=== PATIENT | male | born 1955 | race Caucasian/White ===

== ENCOUNTER 2017-07-18 07:57 | Day surgery (SDC) | payer BC ==
[~2017-07-18 07:57] MED LIST: Albuterol 0.083% 2.5 MG/3 ML Neb Soln NEB SCH; Lactated Ringers 1,000 ML IV SCH; Lidocaine 1%/Sod Bicarbonate in NS 8.4% 1 ML Syringe IDERM PRN; Sodium Chloride 0.9% 10 ML Syringe FLUSH PRN
[2017-07-18] MEDS ORDERED: Lidocaine 1% with EPINEPHrine 1:100,000 20 ML MDV ONE (08:15)
[2017-07-18] MEDS ORDERED: Bupivacaine 0.5%/EPINEPHrine 1:200,000 50 ML MDV ONE (08:15)
[2017-07-18] MEDS ORDERED: Lidocaine 1% 4 ML ONE (08:48)
[2017-07-18] MEDS ORDERED: Ondansetron 4 MG/2 ML SDV ONE (08:48)
[2017-07-18] MEDS ORDERED: Propofol 200 MG/20 ML SDV ONE (08:48)
[2017-07-18] MEDS ORDERED: ceFAZolin 1 GM Vial ONE (08:49)
[2017-07-18] MEDS ORDERED: Midazolam 1 MG/ML 2 ML SDV ONE (08:49)
[2017-07-18] MEDS ORDERED: fentaNYL 250 MCG/5 ML SDV ONE (08:49)
[2017-07-18] MEDS ORDERED: Metoprolol Succinate 25 MG Tab.ER PO ONE (09:01)
--- NOTE | 2017-07-18 09:09 | PCM.PREANE ---
Preanesthetic Assessment - Anesthesia/Transfusion/Family Hx Anesthesia History: Prior Anesthesia Without Reaction Family History of Anesthesia Reaction: No Transfusion History: No Prior Transfusion(s) - Review of Systems General: No Symptoms Pulmonary: No Symptoms Cardiovascular: No Symptoms Gastrointestinal: No Symptoms Neurological: No Symptoms Other: Reports: Easy Bruising, Depression - Physical Assessment NPO Status Date: 07/18/17 NPO Status Time: 20:00 O2 Sat by Pulse Oximetry: 100 Respiratory Rate: 18 Vital Signs: Last Vital Signs Temp 98.1 F 07/18/17 08:00 Pulse 58 L 07/18/17 08:00 Resp 18 07/18/17 08:00 BP 119/79 07/18/17 08:00 Pulse Ox 100 07/18/17 08:00 Height: 5 ft 6 in Weight: 80.286 kg ASA Class: 2 Mental Status: Alert & Oriented x3 Airway Class: Mallampati = 1 Dentition: Reports: Normal Dentition Thyro-Mental Finger Breadths: 3 Mouth Opening Finger Breadths: 3 ROM/Head Extension: Full Lungs: Clear to Auscultation, Normal Respiratory Effort Cardiovascular: Regular Rate, Regular Rhythm - Allergies Allergies/Adverse Reactions: Allergies Allergy/AdvReac Type Severity Reaction Status Date / Time No Known Allergies Allergy Verified 07/18/17 08:48 - Blood Blood Available: No - Anesthesia Plan Beta Calos: Metoprolol Med Last Dose Date: 07/18/17 Med Last Dose Time: 09:05 - Acknowledgements Anesthesia Type Planned: General Anesthesia Pt an Appropriate Candidate for the Planned Anesthesia: Yes Alternatives and Risks of Anesthesia Discussed w Pt/Guardian: Yes Pt/Guardian Understands and Agrees with Anesthesia Plan: Yes PreAnesthesia Questionnaire HEENT History: Reports: Impaired Vision Cardiovascular History: Reports: High Cholesterol, Hypertension, Pacemaker, Other (See Below) Other Cardiovascular History: sick sinus syndrome prior to pacemaker, palpitations, angiogram Respiratory History: Reports: None, SOB Gastrointestinal History: Reports: None, GERD Genitourinary History: Reports: None 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 Musculoskeletal History: Reports: Gout Neurological History: Reports: MS (possibly) Psychiatric History: Reports: None Endocrine/Metabolic History: Reports: None Hematologic History: Reports: None Immunologic History: Reports: None Oncologic (Cancer) History: Reports: None Dermatologic History: Reports: None - Past Surgical History Head Surgeries/Procedures: Reports: None HEENT Surgical History: Reports: Cataract Surgery Cardiovascular Surgical History: Reports: None, Pacer Respiratory Surgical History: Reports: None GI Surgical History: Reports: Appendectomy, Hernia, Inguinal Female Surgical History: Reports: None Male Surgical History: Reports: None Endocrine Surgical History: Reports: None Neurological Surgical History: Reports: None Musculoskeletal Surgical History: Reports: None, Nerve Relocation Oncologic Surgical History: Reports: None Dermatological Surgical History: Reports: None - SUBSTANCE USE Smoking Status *Q: Former Smoker Tobacco Use Within Last Twelve Months: Smokeless Tobacco, Snuff/Dip Second Hand Smoke Exposure: No Days Per Week of Alcohol Use: 1 Number of Drinks Per Day: 2 Total Drinks Per Week: 2 Recreational Drug Use History: No - HOME MEDS Home Medications: Home Meds Allopurinol [Zyloprim] 300 mg PO DAILY 07/17/17 [History] Aspirin [Ecotrin] 81 mg PO DAILY 07/17/17 [History] Losartan/Hydrochlorothiazide [Losartan-HCTZ 50-12.5 MG] 1 tab PO DAILY 07/17/17 [History] Metoprolol Succinate 25 mg PO QPM 07/17/17 [History] Pantoprazole Sodium 40 mg PO DAILY 07/17/17 [History] Sertraline HCl 50 mg PO DAILY 07/17/17 [History] amLODIPine Besylate [Amlodipine Besylate] 10 mg PO DAILY 07/17/17 [History] atorvaSTATin Calcium [Atorvastatin Calcium] 40 mg PO BEDTIME 07/17/17 [History] - CURRENT (IN HOUSE) MEDS Current Meds: Current Medications Albuterol (Proventil Neb Soln) 2.5 mg NEB ONETIME SUSAN Stop: 07/18/17 16:00 Lactated Ringer's (Ringers, Lactated) 1,000 mls @ 125 mls/hr IV ASDIRECTED SUSAN Stop: 07/18/17 23:00 Last Admin: 07/18/17 08:20 Dose: 125 mls/hr Lidocaine/Sodium Bicarbonate (Buffered Lidocaine 1% In Ns 8.4%) 0.25 ml IDERM ONETIME PRN PRN Reason: Prior to IV Start Stop: 07/18/17 18:00 Last Admin: 07/18/17 08:19 Dose: 0.25 ml Sodium Chloride (Saline Flush) 10 ml FLUSH ASDIRECTED PRN PRN Reason: Keep Vein Open Stop: 07/18/17 18:00 Discontinued Medications Bupivacaine HCl/Epinephrine Bitart (Marcaine 0.5%/Epinephrine 1:200,000) Confirm Administered Dose 50 ml .ROUTE .STK-MED ONE Stop: 07/18/17 08:16 Cefazolin Sodium (Ancef) Confirm Administered Dose 2 gm .ROUTE .STK-MED ONE Stop: 07/18/17 08:50 Fentanyl (Sublimaze) Confirm Administered Dose 250 mcg .ROUTE .STK-MED ONE Stop: 07/18/17 08:50 Lidocaine HCl (Xylocaine-Mpf 1%) Confirm Administered Dose 4 mls @ as directed .ROUTE .STK-MED ONE Stop: 07/18/17 08:49 Lidocaine/Epinephrine (Xylocaine 1% With Epinephrine 1:100,000) Confirm Administered Dose 20 ml .ROUTE .STK-MED ONE Stop: 07/18/17 08:16 Metoprolol Succinate (Toprol Xl) 25 mg PO ONETIME ONE Stop: 07/18/17 09:02 Midazolam HCl (Versed 1 Mg/Ml) Confirm Administered Dose 2 mg .ROUTE .STK-MED ONE Stop: 07/18/17 08:50 Ondansetron HCl (Zofran) Confirm Administered Dose 4 mg .ROUTE .STK-MED ONE Stop: 07/18/17 08:49 Propofol (Diprivan 20 Ml) Confirm Administered Dose 200 mg .ROUTE .STK-MED ONE Stop: 07/18/17 08:49
[2017-07-18] MEDS ORDERED: Ondansetron 4 MG/2 ML SDV IVPUSH PRN (09:56)
[2017-07-18] MEDS ORDERED: Meperidine PF 50 MG/ML Syringe IVPUSH PRN (09:56)
[2017-07-18] MEDS ORDERED: fentaNYL 100 MCG/2 ML SDV IVPUSH PRN (09:56)
[2017-07-18] MEDS ORDERED: HYDROmorphone 0.5 MG/0.5 ML Syringe IVPUSH PRN (09:56)
[2017-07-18] MEDS ORDERED: Lactated Ringers 1,000 ML ONE (10:42)
--- NOTE | 2017-07-18 10:52 | PCM.OPNOTE ---
- General Post-Op/Procedure Note Date of Surgery/Procedure: 07/18/17 Operative Procedure(s): Right groin exploration Findings: Scar tissue between the spermatic cord and the previously placed mesh. There was no odessa hernia through the mesh for through the floor and no herniation seen within the spermatic cord. The femoral canal and no hernias well. Pre Op Diagnosis: Recurrent right abdominal hernia Post-Op Diagnosis: Right groin pain secondary to scar tissue Anesthesia Technique: General LMA, Local Primary Surgeon: Chintan Nash Pathology: None EBL in mLs: 3 Complications: None Condition: Good Free Text/Narrative:: After adequate LMA general anesthesia was obtained the patient's right groin was prepped and draped for a open recurrent right inguinal herniorrhaphy. Through the previous incision I used a 10 blade to enter the right groin down to the external oblique fascia. I dissected away extensive scar tissue from the previous surgery encompassing the subcutaneous fat and external oblique. The spermatic cord was visualized and mobilized from the pubic tubercle after opening the external oblique fascia then controlled with a Morrow drain. I inspected the previously placed mesh and there were no defects within the floor but there was extensive scar tissue. I then opened the cord and there was no indirect sac seen. I then explored the femoral canal from below and digital exploration revealed no hernia and no defect. The subcutaneous fat pad had no herniation that was seen through Jennifer's fascia. There was no cord lipoma. I then obtained hemostasis and closed the external oblique fascia back over the mesh with 4 interrupted 0 Ethibond sutures. Additional local was given at this point. Jennifer's fascia was closed with a running 3-0 Vicryl. The skin was closed with 4-0 subcuticular Vicryl. Steri-Strips and gauze were used for the dressing. There were no complications.
--- NOTE | 2017-07-18 10:59 | PCM.POSTAN ---
POST ANESTHESIA ASSESSMENT - MENTAL STATUS Mental Status: Alert, Oriented - VITAL SIGNS Pulse Rate: 61 SaO2: 97 Resp Rate: 10 Blood Pressure: 117/69 Temperature: 99.2 F - RESPIRATORY Respiratory Status: Respiratory Rate WNL, Airway Patent, O2 Saturation Stable, Supplemental Oxygen - CARDIOVASCULAR CV Status: Pulse Rate WNL, Blood Pressure Stable - GASTROINTESTINAL GI Status: No Symptoms - PAIN Pain Score: 2 - POST OP HYDRATION Hydration Status: Adequate & Stable
[2017-07-18] MEDS ORDERED: Ketorolac 30 MG/ML SDV ONE (11:11)
[2017-07-18] MEDS ORDERED: Ketorolac 30 MG/ML SDV IVPUSH ONE (11:25)
[2017-07-18] MEDS ORDERED: Acetaminophen/oxyCODONE 325-5 MG Tab PO SCH (12:18)
--- NOTE | 2017-07-18 13:14 | PCM48HPAN ---
Post Anesthesia Note - EVALUATION WITHIN 48HRS OF ANESTHETIC Vital Signs in Normal Range: Yes Patient Participated in Evaluation: Yes Respiratory Function Stable: Yes Airway Patent: Yes Cardiovascular Function Stable: Yes Hydration Status Stable: Yes Pain Control Satisfactory: Yes Nausea and Vomiting Control Satisfactory: Yes Mental Status Recovered: Yes
== END 2017-07-18 13:15 | disposition home or self-care (01) ==
LOC: JD.SDS 07:57
PROVIDERS: ATTEND Surgery
DX: G89.18 Other acute postprocedural pain (principal); E78.00 Pure hypercholesterolemia, unspecified; I10 Essential (primary) hypertension; Z95.0 Presence of cardiac pacemaker; Z90.49 Acquired absence of other specified parts of digestive tract; Z87.891 Personal history of nicotine dependence; Z79.899 Other long term (current) drug therapy; Z79.82 Long term (current) use of aspirin
CPT/HCPCS: 49999; A9270; J0690; J1170; J1885; J2250; J2405; J3010; J7120; J2704

== ENCOUNTER 2019-02-19 11:12 | Observation (INO) | payer BC ==
--- NOTE | 2019-02-19 11:40 | EDM.PDOC ---
ED HPI GENERAL MEDICAL PROBLEM - General Chief Complaint: Abdominal Pain Stated Complaint: POSSIBLE HERNIA Time Seen by Provider: 02/19/19 11:19 Source of Information: Reports: Patient, RN Notes Reviewed - History of Present Illness INITIAL COMMENTS - FREE TEXT/NARRATIVE: 63 year old male with L groin and L lower abd pain for the past 4 to 5 days. Quite severe 4 days ago and than became severe again last evening and during the night early this morning. He did have an abd CT at [facility] or clinic [address] report was amended 2 days ago to state there was a small fat containing L inguinal hernia. He presented to the [place] ED or clinic this morning with severe pain L lower abd. He was given a shot of dilaudid 2 mg IM at [place] about 2 or 3 hours ago, pain is very minimal at this time. He is here to see Dr Valdes, General Surgeon, Ed do. He has had no fever/ chills, nausea or vomiting. Hx of prior R hernia repair. Hx Htn., CAD. He was started on oral cipro and flagyl 3 days ago. Left Groin Pain Score (Numeric/FACES): 8 - Related Data Allergies Allergy/AdvReac Type Severity Reaction Status Date / Time No Known Allergies Allergy Verified 02/19/19 18:55 Home Meds: Home Meds Allopurinol [Zyloprim] 300 mg PO DAILY 07/17/17 [History] Aspirin [Ecotrin EC] 81 mg PO DAILY 07/17/17 [History] Metoprolol Succinate 125 mg PO QPM 07/17/17 [History] Pantoprazole Sodium 40 mg PO DAILY 07/17/17 [History] Sertraline HCl 50 mg PO DAILY 07/17/17 [History] amLODIPine Besylate [Amlodipine Besylate] 5 mg PO DAILY 07/17/17 [History] atorvaSTATin Calcium [Atorvastatin Calcium] 40 mg PO BEDTIME 07/17/17 [History] Ciprofloxacin [Ciprofloxacin HCl] 500 mg PO BID 02/19/19 [History] Losartan Potassium 25 mg PO DAILY 02/19/19 [History] Nitroglycerin [Nitrostat] 0.4 mg SL ASDIRECTED PRN 02/19/19 [History] hydroCHLOROthiazide [Hydrochlorothiazide] 12.5 mg PO QAM 02/19/19 [History] metroNIDAZOLE [Metronidazole] 500 mg PO TID 02/19/19 [History] Past Medical History HEENT History: Reports: Impaired Vision Cardiovascular History: Reports: High Cholesterol, Hypertension, Pacemaker, Other (See Below) Other Cardiovascular History: sick sinus syndrome prior to pacemaker, palpitations, angiogram Respiratory History: Reports: None, SOB Gastrointestinal History: Reports: None, GERD, Hemorrhoids Genitourinary History: Reports: None 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 Musculoskeletal History: Reports: Gout Neurological History: Reports: MS Psychiatric History: Reports: None Endocrine/Metabolic History: Reports: None Hematologic History: Reports: None Immunologic History: Reports: None Oncologic (Cancer) History: Reports: None Dermatologic History: Reports: None - Infectious Disease History Infectious Disease History: Reports: None - Past Surgical History Head Surgeries/Procedures: Reports: None HEENT Surgical History: Reports: Cataract Surgery Cardiovascular Surgical History: Reports: None, Pacer Respiratory Surgical History: Reports: None GI Surgical History: Reports: Appendectomy, Hernia, Inguinal Other GI Surgeries/Procedures: Hernia repair x2 Male Surgical History: Reports: None Endocrine Surgical History: Reports: None Neurological Surgical History: Reports: None Musculoskeletal Surgical History: Reports: None, Nerve Relocation Other Musculoskeletal Surgeries/Procedures:: Right Ulnar Nerve Oncologic Surgical History: Reports: None Dermatological Surgical History: Reports: None Social & Family History - Tobacco Use Smoking Status *Q: Never Smoker - Caffeine Use Caffeine Use: Reports: Soda - Recreational Drug Use Recreational Drug Use: No ED ROS GENERAL - Review of Systems Review Of Systems: See Below Constitutional: Denies: Fever, Chills, Diaphoresis HEENT: Denies: Throat Pain Respiratory: Denies: Shortness of Breath Cardiovascular: Denies: Chest Pain GI/Abdominal: Reports: Abdominal Pain (L lower abd and groin). Denies: Diarrhea , Vomiting : Reports: No Symptoms Musculoskeletal: Denies: Back Pain Skin: Reports: No Symptoms Neurological: Reports: No Symptoms ED EXAM, GI/ABD - Physical Exam Exam: See Below General Appearance: Alert Throat/Mouth: Normal Inspection, Normal Oropharynx Head: Atraumatic Neck: Supple Respiratory/Chest: No Respiratory Distress, Lungs Clear, Normal Breath Sounds Cardiovascular: Regular Rate, Rhythm GI/Abdominal Exam: Soft, Tender (very tender L lower abd, remainder of abd soft and nontender), Other (mild fullness, tenderness L groin) (Male) Exam: Other (fullness, tenderness L groin compatable with hernia). No : Scrotal Swelling, Scrotum Tenderness (L), Testicular Mass Extremities: Normal Inspection, Normal Range of Motion. No: Leg Pain Neurological: Oriented, No Motor/Sensory Deficits Skin Exam: Warm, Dry, Normal Color Course - Vital Signs Last Recorded V/S: Last Vital Signs Temp 97.6 F 02/19/19 11: Pulse 59 L 02/19/19 11: Resp 16 02/19/19 11: BP 132/89 02/19/19 11: Pulse Ox 100 02/19/19 11:19 - Orders/Labs/Meds Orders: Active Orders 24 hr Category Date Time Status NPO [Nothing Per Oral Diet] [DIET] Diet 02/19/19 Dinner Active PATIENT RETYPE [BBK] Routine Lab 02/19/19 15:46 Ordered Sodium Chloride 0.9% [Saline Flush] Med 02/19/19 15:58 Active 10 ml FLUSH ONETIME PRN Medication Orders Amlodipine Besylate (Norvasc) 5 mg PO DAILY SUSAN Enoxaparin Sodium (Lovenox) 40 mg SUBCUT DAILY [facility] Hydrochlorothiazide (Hydrochlorothiazide) 12.5 mg PO QAM SUSAN Lactated Ringer's (Ringers, Lactated) 1,000 mls @ 125 mls/hr IV ASDIRECTED SUSAN Ketorolac Tromethamine (Toradol) 30 mg IV Q6H PRN PRN Reason: Pain (moderate 4-6) Losartan Potassium (Cozaar) 25 mg PO DAILY [facility] Metoprolol Succinate (Toprol Xl) 125 mg PO QPM SUSAN Morphine Sulfate (Morphine) 1 mg IVPUSH Q4H PRN PRN Reason: Pain (severe 7-10) Stop: 02/20/19 18:49 Non-Formulary Medication (Atorvastatin) 40 mg PO BEDTIME SUSAN Non-Formulary Medication (Sertraline) 50 mg PO DAILY SUSAN Ondansetron HCl (Zofran) 4 mg IV Q6H PRN PRN Reason: Nausea/Vomiting Sodium Chloride (Saline Flush) 10 ml FLUSH ONETIME PRN PRN Reason: IV FLUSH Last Admin: 02/19/19 17:09 Dose: 10 ml Labs: Laboratory Tests 02/19/19 02/19/19 02/19/19 Range/Units 15:00 15:00 15:00 WBC 7.30 (4.23-9.07) K/mm3 RBC 4.52 L (4.63-6.08) M/mm3 Hgb 14.6 (13.7-17.5) gm/dl Hct 43.8 (40.1-51.0) % MCV 96.9 H (79.0-92.2) fl MCH 32.3 H (25.7-32.2) pg MCHC 33.3 (32.2-35.5) g/dl RDW Std Deviation 45.9 H (35.1-43.9) fL Plt Count 240 (163-337) K/mm3 MPV 9.8 (9.4-12.3) fl Neut % (Auto) 64.3 (34.0-67.9) % Lymph % (Auto) 21.2 L (21.8-53.1) % Kleberg % (Auto) 11.1 (5.3-12.2) % Eos % (Auto) 2.5 (0.8-7.0) Baso % (Auto) 0.5 (0.1-1.2) % Neut # (Auto) 4.69 (1.78-5.38) K/mm3 Lymph # (Auto) 1.55 (1.32-3.57) K/mm3 Kleberg # (Auto) 0.81 (0.30-0.82) K/mm3 Eos # (Auto) 0.18 (0.04-0.54) K/mm3 Baso # (Auto) 0.04 (0.01-0.08) K/mm3 Sodium 141 (136-145) mEq/L Potassium 3.6 (3.5-5.1) mEq/L Chloride 105 (98-107) mEq/L Carbon Dioxide 29 (21-32) mEq/L Anion Gap 10.6 (5-15) BUN 16 (7-18) mg/dL Creatinine 1.0 (0.7-1.3) mg/dL Est Cr Clr Drug Dosing 69.12 mL/min Estimated GFR (MDRD) > 60 (>60) mL/min BUN/Creatinine Ratio 16.0 (14-18) Glucose 87 (80-115) mg/dL Calcium 9.4 (8.5-10.1) mg/dL Total Bilirubin 0.7 (0.2-1.0) mg/dL AST 28 (15-37) U/L ALT 45 (16-63) U/L Alkaline Phosphatase 86 (46-116) U/L C-Reactive Protein 0.4 (<1.0) mg/dL Total Protein 7.2 (6.4-8.2) g/dl Albumin 3.9 (3.4-5.0) g/dl Globulin 3.3 gm/dL Albumin/Globulin Ratio 1.2 (1-2) Blood Type B POSITIVE Gel Antibody Screen Negative Meds: Medications Generic Name Dose Route Start Last Admin Trade Name Freq PRN Reason Stop Dose Admin Amlodipine Besylate 5 mg 02/20/19 09:00 Norvasc PO DAILY [facility] Enoxaparin Sodium 40 mg 02/20/19 09:00 Lovenox SUBCUT DAILY [facility] Hydrochlorothiazide 12.5 mg 02/20/19 08:00 Hydrochlorothiazide PO QAM [facility] Lactated Ringer's 1,000 mls @ 125 mls/hr 02/19/19 19:00 Ringers, Lactated IV ASDIRECTED [facility] Ketorolac Tromethamine 30 mg 02/19/19 18:46 Toradol IV Q6H PRN Pain (moderate 4-6) Losartan Potassium 25 mg 02/20/19 09:00 Cozaar PO DAILY [facility] Metoprolol Succinate 125 mg 02/20/19 18:00 Toprol Xl PO QPM [facility] Morphine Sulfate 1 mg 02/19/19 18:46 Morphine IVPUSH 02/20/19 18:49 Q4H PRN Pain (severe 7-10) Non-Formulary Medication 40 mg 02/19/19 21:00 Atorvastatin PO BEDTIME [facility] Non-Formulary Medication 50 mg 02/20/19 09:00 Sertraline PO DAILY [facility] Ondansetron HCl 4 mg 02/19/19 18:46 Zofran IV Q6H PRN Nausea/Vomiting Sodium Chloride 10 ml 02/19/19 15:58 02/19/19 17:09 Saline Flush FLUSH 10 ml ONETIME PRN Administration IV FLUSH Discontinued Medications Generic Name Dose Route Start Last Admin Trade Name Freq PRN Reason Stop Dose Admin Diatrizoate Meglum/Diatrizoate Sod 120 ml 02/19/19 15:58 Gastrografin 37% PO 02/19/19 15:59 ONETIME ONE Hydromorphone HCl 1 mg 02/19/19 13:29 02/19/19 13:33 Dilaudid IVPUSH 02/19/19 13:30 1 mg ONETIME ONE Administration Piperacillin Sod/Tazobactam 100 mls @ 200 mls/hr 02/19/19 14:56 02/19/19 15: 10 Sod 4.5 gm/ Sodium Chloride IV 02/19/19 15:25 200 mls/hr ONETIME ONE Administration Iopamidol 100 ml 02/19/19 15:58 02/19/19 17:08 Isovue-300 (61%) IVPUSH 02/19/19 15:59 100 ml ONETIME ONE Administration - Re-Assessments/Exams Free Text/Narrative Re-Assessment/Exam: 02/19/19 12:36. Have discussed with Dr Valdes, General Surgeon, he was called by patient's [place] Physician, he will come see patient. 02/19/19 15:15. Dr Valdes has seen patient. He believes after exam that patient's main problem is diverticulitis, he has failed outpatient treatment with severe pain and tednerness today LLQ despite 3 days of oral abx. He is recomending hospital admission for IV abx, bowel rest, pain control. Have ordered Zosyn 4.5 grams IV. 15:35. Have visited with Dr Fragoso, she wants repeat Abd CT before admission to see status of infection, R/O abscess. CT will be done with IV and oral contrast. 02/19/19 18:15. CT of Abd does show localized inflamation compatable with diverticulitis, no abscess. Departure - Departure Time of Disposition: 15:38 Disposition: Admitted As Inpatient 67 Condition: Fair Clinical Impression: Diverticulitis - Discharge Information ED Communication - Discussed Case With (1) Discussed Case With (1): Admitting Provider (Discussed with Dr Fragoso, decision to admit at about 18:15.) - My Orders Last 24 Hours: My Active Orders 02/19/19 15:58 Sodium Chloride 0.9% [Saline Flush] 10 ml FLUSH ONETIME PRN - Assessment/Plan Last 24 Hours: My Active Orders 02/19/19 15:58 Sodium Chloride 0.9% [Saline Flush] 10 ml FLUSH ONETIME PRN
[2019-02-19] MEDS ORDERED: HYDROmorphone 1 MG/ML Syringe IVPUSH ONE (13:29)
[2019-02-19] MEDS ORDERED: Piperacillin/Tazobactam 4.5 GM in Sodium Chloride 0.9% 100 ML IV ONE (14:56)
--- NOTE | 2019-02-19 15:02 | PCM.CONS ---
H&P History of Present Illness - General Date of Service: 02/19/19 Source of Information: Patient History Limitations: Reports: No Limitations - History of Present Illness Initial Comments - Free Text/Narative: The patient presents with persistent LLQ abdominal pain. He started having this pain on Friday 02/16. pain was localized on he LLQ, sharp, worse with movement , better with rest, associated with diarrhea. He saw Dr. Velásquez who obtained labs and a CT a/p was done and I personally reviewed the images. It revealed mild sigmoid diverticulitis as well as a left inguinal hernia containing fat. Inguinal hernia was without any signs of incarceration of inflammation. WBC was 7 and the patient was afebrile. The patient was started on oral Cipro/ Flagyl. However, his pain worsened overnight and he returned to he to Dr. Velásquez who called me as the patient was scheduled to see me next week. I asked the patient be sent to the ED. I saw and evaluated the patient in the ED, he is AF, VSS, complains of LLQ pain , not left inguinal pain. He had diarrhea but no nausea or vomiting. Onset of Symptoms: Reports: Sudden Duration of Symptoms: Reports: Day(s):, Constant, Getting Worse Location: Reports: Abdomen (LLQ) Quality: Reports: Ache, Sharp Improves with: Reports: Immobilization Worsens with: Reports: Movement Associated Symptoms: Reports: Other (diarrhea) Left Groin Pain Score (Numeric/FACES): 8 - Related Data Allergies/Adverse Reactions: Allergies Allergy/AdvReac Type Severity Reaction Status Date / Time No Known Allergies Allergy Verified 02/19/19 11:29 Home Medications: Home Meds Allopurinol [Zyloprim] 300 mg PO DAILY 07/17/17 [History] Aspirin [Ecotrin EC] 81 mg PO DAILY 07/17/17 [History] Losartan/Hydrochlorothiazide [Losartan-HCTZ 50-12.5 MG] 1 tab PO DAILY 07/17/17 [History] Metoprolol Succinate 125 mg PO QPM 07/17/17 [History] Pantoprazole Sodium 40 mg PO DAILY 07/17/17 [History] Sertraline HCl 50 mg PO DAILY 07/17/17 [History] amLODIPine Besylate [Amlodipine Besylate] 5 mg PO DAILY 07/17/17 [History] atorvaSTATin Calcium [Atorvastatin Calcium] 40 mg PO BEDTIME 07/17/17 [History] Ciprofloxacin [Ciprofloxacin HCl] 500 mg PO BID 02/19/19 [History] Nitroglycerin [Nitrostat] 0.4 mg SL ASDIRECTED PRN 02/19/19 [History] metroNIDAZOLE [Metronidazole] 500 mg PO TID 02/19/19 [History] Past Medical History HEENT History: Reports: Impaired Vision Cardiovascular History: Reports: High Cholesterol, Hypertension, Pacemaker, Other (See Below) Other Cardiovascular History: sick sinus syndrome prior to pacemaker, palpitations, angiogram Respiratory History: Reports: None, SOB Gastrointestinal History: Reports: None, GERD, Hemorrhoids Genitourinary History: Reports: None 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 History: Reports: None Musculoskeletal History: Reports: Gout Neurological History: Reports: MS Psychiatric History: Reports: None Endocrine/Metabolic History: Reports: None Hematologic History: Reports: None Immunologic History: Reports: None Oncologic (Cancer) History: Reports: None Dermatologic History: Reports: None - Infectious Disease History Infectious Disease History: Reports: None - Past Surgical History Head Surgeries/Procedures: Reports: None HEENT Surgical History: Reports: Cataract Surgery Cardiovascular Surgical History: Reports: None, Pacer Respiratory Surgical History: Reports: None GI Surgical History: Reports: Appendectomy, Hernia, Inguinal Other GI Surgeries/Procedures: Hernia repair x2 Male Surgical History: Reports: None Endocrine Surgical History: Reports: None Neurological Surgical History: Reports: None Musculoskeletal Surgical History: Reports: None, Nerve Relocation Other Musculoskeletal Surgeries/Procedures:: Right Ulnar Nerve Oncologic Surgical History: Reports: None Dermatological Surgical History: Reports: None Social & Family History - Tobacco Use Smoking Status *Q: Never Smoker - Caffeine Use Caffeine Use: Reports: Soda - Recreational Drug Use Recreational Drug Use: No H&P Review of Systems - Review of Systems: Review Of Systems: See Below General: Reports: No Symptoms HEENT: Reports: No Symptoms Pulmonary: Reports: No Symptoms Cardiovascular: Reports: No Symptoms Gastrointestinal: Reports: Abdominal Pain, Diarrhea Genitourinary: Reports: No Symptoms Musculoskeletal: Reports: No Symptoms Skin: Reports: No Symptoms Psychiatric: Reports: No Symptoms Neurological: Reports: No Symptoms Hematologic/Lymphatic: Reports: No Symptoms Exam - Exam Exam: See Below - Vital Signs Vital Signs: Last Vital Signs Temp 97.6 F 02/19/19 11:19 Pulse 59 L 02/19/19 11:19 Resp 16 02/19/19 11:19 BP 132/89 02/19/19 11:19 Pulse Ox 100 02/19/19 11:19 Weight: 81.647 kg - Exam Quality Assessment: Supplemental Oxygen General: Alert, Oriented, Cooperative, Mild Distress HEENT: Conjunctiva Clear Neck: Supple Lungs: Clear to Auscultation, Normal Respiratory Effort Cardiovascular: Regular Rate, Regular Rhythm, Normal S1, Normal S2 GI/Abdominal Exam: Soft, Distended (mildly), Tender (LLQ), Other (no guarding) (Male) Exam: Hernia (reducible left inguinal hernia is present) Consult PN Assessment/Plan Procedures: Procedures ABDOMEN SURGERY PROCEDURE (07/18/17) COMPLETE CBC W/AUTO DIFF WBC (07/08/17) METABOLIC PANEL TOTAL CA (07/08/17) MR-STAPH DNA AMP PROBE (07/08/17) ROUTINE VENIPUNCTURE (07/08/17) Problem List Initiated/Reviewed/Updated: No My Orders Last 24 Hours: My Active Orders 02/19/19 14:48 CBC WITH AUTO DIFF [HEME] Stat 02/19/19 14:49 TYPE AND SCREEN [BBK] Stat 02/19/19 14:50 CMP [COMPREHENSIVE METABOLIC PN,CMP] [CHEM] Stat 02/19/19 Dinner NPO [Nothing Per Oral Diet] [DIET] Plan: patient has worsening diverticulitis. Failed outpatient management. Plan is to admit, NPO, IVF, IV Abx. Ok for ice chips. Ok to ambulate as tolerated
[2019-02-19] MEDS ORDERED: Diatrizoate Meglumine/Diatrizoate Sodium 37% 120 ML Bottle PO ONE (15:58)
[2019-02-19] MEDS ORDERED: Iopamidol 612 MG/ML 100 ML Bottle IVPUSH ONE (15:58)
[2019-02-19] MEDS ORDERED: Sodium Chloride 0.9% 10 ML Syringe FLUSH PRN (15:58)
--- NOTE | 2019-02-19 17:39 | CT ---
CT abdomen and pelvis Technique: Multiple axial sections were obtained from above the dome of the diaphragm inferiorly through the pubic symphysis. Intravenous and oral contrast was utilized. Delayed images were obtained through the bladder. Comparison: No prior abdominal imaging. Findings: There is mild inflammatory change seen around a portion of the sigmoid colon which is felt compatible with diverticulitis as diverticuli are seen within this region. No abscess is seen at this time. Visualized lung bases show nothing acute. Vague areas of increased enhancement are seen within the left lobe of the liver most likely artifact although MRI would liver will be recommended to confirm. No additional abnormality is seen within the liver. Spleen appears normal. Adrenal glands show no nodule. Pancreas is within normal limits. Gallbladder contains no calcified gallstones. Aorta shows no aneurysm. No retroperitoneal adenopathy or mesenteric abnormalities are seen. No pelvic mass or adenopathy is seen. Fat-containing left inguinal hernia is noted. Bone window settings were reviewed which shows scattered degenerative change throughout the spine. Delayed images shows contrast within the distal ureters and bladder. Impression: 1. Mild inflammatory change around a diverticuli within the sigmoid colon which is felt compatible with mild diverticulitis. No abscess is seen at this time. 2. Vague areas of increased enhancement within the left lobe of the liver. This is most likely incidental but MRI liver recommended to confirm that no mass is present. This can be performed non-emergently. 3. Other findings as noted above which are felt to be incidental. Diagnostic code #9
--- NOTE | 2019-02-19 18:20 | PCM.HP.2 ---
H&P History of Present Illness - General Date of Service: 02/19/19 - History of Present Illness Initial Comments - Free Text/Narative: This is a 63 year old male with past medical history of hypertension and sick sinus syndrome s/p pacemaker placement who came to the ED complaining of worsening abdominal for 5 days. per patient pain awoke him in the middle of the night, localized in lower hemiabdomen, cramp-like, 7-8/10, radiating to back. Associated with diarrhea, bloating, chills, Denies nausea, vomiting, flatulence, fevers, chest pain, palpitations, shortness of breath. Tried advil without any improvement. On Friday afternoon he went in to clinic to be evaluated by MD where they performed a CT scan of the abdomen and he was diagnosed with diverticulitis, he was sent home on 2 antibiotics which he started that same day. No change in symptoms for which he went back in yesterday, he was told he had a hernia, they continued ATB therapy. Symptoms did not change at all during this time. Hypertension Pacemaker placement 05/23 SSS DICK non-compliant with CPAP Abnormal LFTs referred to PCP for Liver US numbness and tingling of hands DLD Left Groin Pain Score (Numeric/FACES): 8 - Related Data Allergies/Adverse Reactions: Allergies Allergy/AdvReac Type Severity Reaction Status Date / Time No Known Allergies Allergy Verified 02/19/19 18:55 Home Medications: Home Meds Allopurinol [Zyloprim] 300 mg PO DAILY 07/17/17 [History] Aspirin [Ecotrin EC] 81 mg PO DAILY 07/17/17 [History] Metoprolol Succinate 125 mg PO QPM 07/17/17 [History] Pantoprazole Sodium 40 mg PO DAILY 07/17/17 [History] Sertraline HCl 50 mg PO DAILY 07/17/17 [History] amLODIPine Besylate [Amlodipine Besylate] 5 mg PO DAILY 07/17/17 [History] atorvaSTATin Calcium [Atorvastatin Calcium] 40 mg PO BEDTIME 07/17/17 [History] Ciprofloxacin [Ciprofloxacin HCl] 500 mg PO BID 02/19/19 [History] Losartan Potassium 25 mg PO DAILY 02/19/19 [History] Nitroglycerin [Nitrostat] 0.4 mg SL ASDIRECTED PRN 02/19/19 [History] hydroCHLOROthiazide [Hydrochlorothiazide] 12.5 mg PO QAM 02/19/19 [History] metroNIDAZOLE [Metronidazole] 500 mg PO TID 02/19/19 [History] Past Medical History HEENT History: Reports: Impaired Vision Cardiovascular History: Reports: High Cholesterol, Hypertension, Pacemaker, Other (See Below) Other Cardiovascular History: sick sinus syndrome prior to pacemaker, palpitations, angiogram Respiratory History: Reports: None, SOB Gastrointestinal History: Reports: None, GERD, Hemorrhoids Genitourinary History: Reports: None [employer]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 Musculoskeletal History: Reports: Gout Neurological History: Reports: MS Psychiatric History: Reports: None Endocrine/Metabolic History: Reports: None Hematologic History: Reports: None Immunologic History: Reports: None Oncologic (Cancer) History: Reports: None Dermatologic History: Reports: None - Infectious Disease History Infectious Disease History: Reports: None - Past Surgical History Head Surgeries/Procedures: Reports: None HEENT Surgical History: Reports: Cataract Surgery Cardiovascular Surgical History: Reports: None, Pacer Respiratory Surgical History: Reports: None GI Surgical History: Reports: Appendectomy, Hernia, Inguinal Other GI Surgeries/Procedures: Hernia repair x2 Male Surgical History: Reports: None Endocrine Surgical History: Reports: None Neurological Surgical History: Reports: None Musculoskeletal Surgical History: Reports: None, Nerve Relocation Other Musculoskeletal Surgeries/Procedures:: Right Ulnar Nerve Oncologic Surgical History: Reports: None Dermatological Surgical History: Reports: None Social & Family History - Tobacco Use Smoking Status *Q: Never Smoker - Caffeine Use Caffeine Use: Reports: Soda - Recreational Drug Use Recreational Drug Use: No H&P Review of Systems - Review of Systems: Review Of Systems: See Below General: Reports: Chills, Malaise, Diaphoresis. Denies: Fever, Weakness, Fatigue, Night Sweats, Decreased Appetite, Weight Loss, Weight Gain HEENT: Denies: Headaches, Sore Throat, Vertigo, Visual Changes Pulmonary: Denies: Shortness of Breath, Wheezing, Pleuritic Chest Pain, Cough, Sputum Cardiovascular: Denies: Chest Pain, Palpitations, Dyspnea on Exertion, Orthopnea , PND, Edema, Lightheadedness Gastrointestinal: Reports: Abdominal Pain, Anorexia, Diarrhea, Distension. Denies: Black Stool, Bloody Stool, Constipation, Decreased Appetite, Difficulty Swallowing, Flatus, Hematemesis, Hematochezia, Melena, Nausea, Vomiting Genitourinary: Denies: Dysuria, Frequency, Burning, Pain, Urgency Musculoskeletal: Denies: Joint Swelling, Muscle Pain, Muscle Stiffness Skin: Denies: Cyanosis, Jaundice, Mottled, Rash, Lesions, Lumps Psychiatric: Denies: Confusion, Depression, Mood Lability, Anxiety, Agitation Neurological: Reports: Numbness, Paresthesia. Denies: Confusion, Dizziness, Headache Exam - Exam Exam: See Below - Vital Signs Vital Signs: Last Vital Signs Temp 36.4 C 02/19/19 11: Pulse 59 L 02/19/19 11:19 Resp 16 02/19/19 11:19 BP 132/89 02/19/19 11: Pulse Ox 100 02/19/19 11:19 Weight: 81.647 kg - Exam General: Alert, Oriented, Cooperative, Mild Distress HEENT: Conjunctiva Clear, EACs Clear, EOMI, Hearing Intact, Pupils Reactive Neck: Supple, Trachea Midline Lungs: Clear to Auscultation, Normal Respiratory Effort Cardiovascular: Regular Rate, Regular Rhythm. No: Systolic Murmur, Diastolic Murmur, Rubs, Gallop/S3, Gallop/S4 GI/Abdominal Exam: Normal Bowel Sounds, Soft, No Distention, Guarding, Tender. No: Rebound Extremities: Normal Inspection, No Pedal Edema, Normal Capillary Refill Neuro Extensive - Mental Status: Alert Psychiatric: Alert - Patient Data Result Diagrams: 02/19/19 15:00 02/19/19 15:00 - Problem List (1) Diverticulitis SNOMED Code(s): 911588193 ICD Code: K57.92 - DVTRCLI OF INTEST, PART UNSP, W/O PERF OR ABSCESS W/O BLEED Status: Acute Current Visit: Yes (2) Hypertension SNOMED Code(s): 30377062 ICD Code: I10 - ESSENTIAL (PRIMARY) HYPERTENSION Status: Acute Current Visit: Yes (3) Dyslipidemia SNOMED Code(s): 743081867 ICD Code: E78.5 - HYPERLIPIDEMIA, UNSPECIFIED Status: Acute Current Visit : Yes (4) Obstructive sleep apnea SNOMED Code(s): 23474475 ICD Code: G47.33 - OBSTRUCTIVE SLEEP APNEA (ADULT) (PEDIATRIC) Status: Acute Current Visit: Yes (5) Numbness and tingling in both hands SNOMED Code(s): 197285651 ICD Code: R20.0 - ANESTHESIA OF SKIN; R20.2 - PARESTHESIA OF SKIN Status: Acute Current Visit: Yes (6) Pacemaker SNOMED Code(s): 110060131 ICD Code: Z95.0 - PRESENCE OF CARDIAC PACEMAKER Status: Acute Current Visit: Yes (7) H/O sick sinus syndrome SNOMED Code(s): 207230414271701, 094856172575155 ICD Code: Z86.79 - PERSONAL HISTORY OF OTHER DISEASES OF THE CIRCULATORY SYSTEM Status: Acute Current Visit: Yes (8) Gout SNOMED Code(s): 44031902 ICD Code: M10.9 - GOUT, UNSPECIFIED Status: Acute Current Visit: Yes (9) Fatty hernia of linea alba SNOMED Code(s): 287190578 ICD Code: K43.9 - VENTRAL HERNIA WITHOUT OBSTRUCTION OR GANGRENE Status: Acute Current Visit: Yes Problem List Initiated/Reviewed/Updated: Yes Assessment/Plan Comment:: Acute abdominal pain 2/2 diverticulitis Symptoms for 5 days Failed outpatient Metronidazole and cipro x 3 days No changes in abdominal pain No fever or leukocytosis Mild diverticulitis on CT abdomen PLAN - Continue Zosyn - Monitor temperature and panculture if febrile - NPO for now - LR at 125ml/hr Hypertension Home management with amlodipine 5mg QD, HCTZ 12.5, Losartan 25 and metoprolol 125mg BP on admission PLAN - Continue home medications - PRN Hydralazine for BP >200/110 Dyslipidemia Home atorvastatin 40mg QD No acute issues PLAN - Continue home medication Obstructive sleep apnea Non-compliant with CPAP States his mask and other parts of machine are too worn down PLAN - Recommend PCP to coordinate patient getting replacement parts Numbness and tingling in both hands Previously told he had MS, approximately 20 years ago He has had no progression of symptoms but also no improvement PLAN - Vitamin B12 and folic acid levels - HbA1c H/O sick sinus syndrome s/p pacemaker placement in 1999 No acute issues last interrogation date is unknown but patient denies any cardiac symptoms PLAN - Continue to monitor - No need for telemetry Gout No acute issues PLAN - Hold allopurinol while NPO Incidental left fat containing hernia found on CT scan No signs of strangulation PLAN - Monitor PROPHYLAXIS DVT- Lovenox 40mg QD GI- not indicated CODE STATUS: FULL CODE NEXT OF KIN:Kandace Cherry, , #[phone] DISPOSITION: Patient will be admitted under observation for IV antibiotics and symptomatic treatment for diverticulitis. Discharge likely in the next 24 - 48 hours baring no complications.
[2019-02-19] MEDS ORDERED: Morphine 2 MG/ML Syringe IVPUSH PRN (18:46)
[2019-02-19] MEDS ORDERED: Ondansetron 4 MG/2 ML SDV IV PRN (18:46)
[2019-02-19] MEDS: Lactated Ringers 1,000 ML IV SCH (19:14)
[2019-02-19 19:21] LABS: HEMOGLOBIN A1C 5.9 % (4.50-6.20)
[2019-02-19] MEDS ORDERED: Non-Formulary Medication 1 Each (Atorvastatin 40 MG) PO SCH (21:00)
[2019-02-19] MEDS: Rosuvastatin 10 MG Tab PO SCH (21:40)
[2019-02-20] MEDS: Lactated Ringers 1,000 ML IV SCH ×2 (03:09→13:01)
[2019-02-20] MEDS: Ketorolac 30 MG/ML SDV IV PRN ×3 (03:33→20:37)
[2019-02-20] MEDS: Losartan 25 MG Tab PO SCH (09:38)
[2019-02-20] MEDS: amLODIPine 5 MG Tab PO SCH (09:38)
[2019-02-20] MEDS: Sertraline 50 MG Tab PO SCH (09:38)
[2019-02-20] MEDS: Hydrochlorothiazide 12.5 MG Cap PO SCH (09:39)
[2019-02-20] MEDS: Enoxaparin 40 MG/0.4 ML Syringe SUBCUT SCH (09:40)
[2019-02-20] MEDS ORDERED: TAZOBACTAM IV SCH (10:15)
[2019-02-20] MEDS ORDERED: PIPERACILLIN IV SCH (10:15)
[2019-02-20] MEDS ORDERED: SODIUM CHLORIDE 0.9% IV SCH (10:15)
[2019-02-20] MEDS ORDERED: Piperacillin/Tazobactam 4.5 GM in Sodium Chloride 0.9% 100 ML IV ONE (10:30)
--- NOTE | 2019-02-20 11:42 | PCM.PN ---
- General Info Date of Service: 02/20/19 Subjective Update: Had diarrhea overnight Still in pain but it is responding to Toradol - Patient Data Vitals - Most Recent: Last Vital Signs Temp 36.6 C 02/20/19 09:39 Pulse 60 02/20/19 09:39 Resp 16 02/20/19 09:39 BP 124/81 02/20/19 09:39 Pulse Ox 95 02/20/19 09:39 Weight - Most Recent: 81.012 kg - Exam Physical Findings Comments:: General: Alert, Oriented, Cooperative, Mild Distress HEENT: Conjunctiva Clear, EACs Clear, EOMI, Hearing Intact, Pupils Reactive Neck: Supple, Trachea Midline Lungs: Clear to Auscultation, Normal Respiratory Effort Cardiovascular: Regular Rate, Regular Rhythm. No: Systolic Murmur, Diastolic Murmur, Rubs, Gallop/S3, Gallop/S4 GI/Abdominal Exam: Normal Bowel Sounds, Soft, No Distention, Guarding, Tender. No: Rebound Extremities: Normal Inspection, No Pedal Edema, Normal Capillary Refill Neuro Extensive - Mental Status: Alert - Problem List & Annotations (1) Diverticulitis SNOMED Code(s): 375159147 Code(s): K57.92 - DVTRCLI OF INTEST, PART UNSP, W/O PERF OR ABSCESS W/O BLEED Status: Acute Current Visit: Yes (2) Hypertension SNOMED Code(s): 29616025 Code(s): I10 - ESSENTIAL (PRIMARY) HYPERTENSION Status: Acute Current Visit: Yes (3) Dyslipidemia SNOMED Code(s): 582183224 Code(s): E78.5 - HYPERLIPIDEMIA, UNSPECIFIED Status: Acute Current Visit : Yes (4) Obstructive sleep apnea SNOMED Code(s): 24070691 Code(s): G47.33 - OBSTRUCTIVE SLEEP APNEA (ADULT) (PEDIATRIC) Status: Acute Current Visit: Yes (5) Numbness and tingling in both hands SNOMED Code(s): 509858617 Code(s): R20.0 - ANESTHESIA OF SKIN; R20.2 - PARESTHESIA OF SKIN Status: Acute Current Visit: Yes (6) Pacemaker SNOMED Code(s): 320839794 Code(s): Z95.0 - PRESENCE OF CARDIAC PACEMAKER Status: Acute Current Visit: Yes (7) H/O sick sinus syndrome SNOMED Code(s): 350538499846634, 261725813102542 Code(s): Z86.79 - PERSONAL HISTORY OF OTHER DISEASES OF THE CIRCULATORY SYSTEM Status: Acute Current Visit: Yes (8) Gout SNOMED Code(s): 66490267 Code(s): M10.9 - GOUT, UNSPECIFIED Status: Acute Current Visit: Yes (9) Fatty hernia of linea alba SNOMED Code(s): 107956862 Code(s): K43.9 - VENTRAL HERNIA WITHOUT OBSTRUCTION OR GANGRENE Status: Acute Current Visit: Yes - Problem List Review Problem List Initiated/Reviewed/Updated: Yes - Plan Plan:: Acute abdominal pain 2/2 diverticulitis Symptoms for 5 days Failed outpatient Metronidazole and cipro x 3 days No changes in abdominal pain No fever or leukocytosis Mild diverticulitis on CT abdomen PLAN - Continue Zosyn - Monitor temperature and panculture if febrile - Try clear liquid diet - LR at 125ml/hr Hypertension Home management with amlodipine 5mg QD, HCTZ 12.5, Losartan 25 and metoprolol 125mg BP on admission PLAN - Continue home medications - PRN Hydralazine for BP >200/110 Vitamin D deficiency Low vitamin D PLAN - Will start replacement as an outpatient Dyslipidemia Home atorvastatin 40mg QD No acute issues PLAN - Continue home medication Obstructive sleep apnea Non-compliant with CPAP States his mask and other parts of machine are too worn down PLAN - Recommend PCP to coordinate patient getting replacement parts Numbness and tingling in both hands Previously told he had MS, approximately 20 years ago He has had no progression of symptoms but also no improvement PLAN - Vitamin B12 and folic acid levels - HbA1c H/O sick sinus syndrome s/p pacemaker placement in 1999 No acute issues last interrogation date is unknown but patient denies any cardiac symptoms PLAN - Continue to monitor - No need for telemetry Gout No acute issues PLAN - Hold allopurinol while NPO Incidental left fat containing hernia found on CT scan No signs of strangulation PLAN - Monitor PROPHYLAXIS DVT- Lovenox 40mg QD GI- not indicated CODE STATUS: FULL CODE NEXT OF KIN:Kandace Cherry, , #[phone] DISPOSITION: Patient will be admitted under observation for IV antibiotics and symptomatic treatment for diverticulitis. Will remain hospitalized today, still in pain.
[2019-02-20] MEDS: Potassium Chloride 10 MEQ in Premix Bag 1 BAG IV SCH ×2 (11:45→14:20)
--- NOTE | 2019-02-20 13:57 | PCM.CONSN ---
- General Info Date of Service: 02/20/19 Admission Dx/Problem (Free Text): diverticulitis Subjective Update: HD1 for DIverticulitis. failed outpatient management. TOday, he feels that his pain is improving. No nausea or vomiting. On CLD and felt like the clears worsened his pain. Had diarrhea overnight after having PO contrast. Functional Status: Reports: Pain Controlled - Review of Systems General: Reports: No Symptoms HEENT: Reports: No Symptoms Pulmonary: Reports: No Symptoms Cardiovascular: Reports: No Symptoms Gastrointestinal: Reports: Abdominal Pain Genitourinary: Reports: No Symptoms Musculoskeletal: Reports: No Symptoms Skin: Reports: No Symptoms Neurological: Reports: No Symptoms - Patient Data Vitals - Most Recent: Last Vital Signs Temp 97.9 F 02/20/19 09:39 Pulse 60 02/20/19 09:39 Resp 16 02/20/19 09:39 BP 124/81 02/20/19 09:39 Pulse Ox 95 02/20/19 09:39 Weight - Most Recent: 81.012 kg I&O - Last 24 Hours: Intake & Output 02/19/19 02/20/19 02/20/19 22:59 06:59 14:59 Intake Total 1125 Output Total 600 Balance 525 Lab Results Last 24 Hours: Laboratory Results - last 24 hr 02/19/19 02/19/19 02/19/19 Range/Units 15:00 15:00 15:00 WBC 7.30 (4.23-9.07) K/mm3 RBC 4.52 L (4.63-6.08) M/mm3 Hgb 14.6 (13.7-17.5) gm/dl Hct 43.8 (40.1-51.0) % MCV 96.9 H (79.0-92.2) fl MCH 32.3 H (25.7-32.2) pg MCHC 33.3 (32.2-35.5) g/dl RDW Std Deviation 45.9 H (35.1-43.9) fL Plt Count 240 (163-337) K/mm3 MPV 9.8 (9.4-12.3) fl Neut % (Auto) 64.3 (34.0-67.9) % Lymph % (Auto) 21.2 L (21.8-53.1) % [place] % (Auto) 11.1 (5.3-12.2) % Eos % (Auto) 2.5 (0.8-7.0) Baso % (Auto) 0.5 (0.1-1.2) % Neut # (Auto) 4.69 (1.78-5.38) K/mm3 Lymph # (Auto) 1.55 (1.32-3.57) K/mm3 [place] # (Auto) 0.81 (0.30-0.82) K/mm3 Eos # (Auto) 0.18 (0.04-0.54) K/mm3 Baso # (Auto) 0.04 (0.01-0.08) K/mm3 Sodium 141 (136-145) mEq/L Potassium 3.6 (3.5-5.1) mEq/L Chloride 105 (98-107) mEq/L Carbon Dioxide 29 (21-32) mEq/L Anion Gap 10.6 (5-15) BUN 16 (7-18) mg/dL Creatinine 1.0 (0.7-1.3) mg/dL Est Cr Clr Drug Dosing 69.12 mL/min Estimated GFR (MDRD) > 60 (>60) mL/min BUN/Creatinine Ratio 16.0 (14-18) Glucose 87 (80-115) mg/dL Hemoglobin A1c (4.50-6.20) % Calcium 9.4 (8.5-10.1) mg/dL Phosphorus (2.6-4.7) mg/dL Magnesium (1.8-2.4) mg/dl Total Bilirubin 0.7 (0.2-1.0) mg/dL AST 28 (15-37) U/L ALT 45 (16-63) U/L Alkaline Phosphatase 86 (46-116) U/L C-Reactive Protein 0.4 (<1.0) mg/dL Total Protein 7.2 (6.4-8.2) g/dl Albumin 3.9 (3.4-5.0) g/dl Globulin 3.3 gm/dL Albumin/Globulin Ratio 1.2 (1-2) Vitamin B12 (193-986) pg/ml Vitamin D 25-Hydroxy (30.0-100.0) ng/ml Folate (8.6-58.9) ng/mL Blood Type B POSITIVE Gel Antibody Screen Negative 02/19/19 02/19/19 02/19/19 Range/Units 15:00 15:00 19:06 WBC (4.23-9.07) K/mm3 RBC (4.63-6.08) M/mm3 Hgb (13.7-17.5) gm/dl Hct (40.1-51.0) % MCV (79.0-92.2) fl MCH (25.7-32.2) pg MCHC (32.2-35.5) g/dl RDW Std Deviation (35.1-43.9) fL Plt Count (163-337) K/mm3 MPV (9.4-12.3) fl Neut % (Auto) (34.0-67.9) % Lymph % (Auto) (21.8-53.1) % [place] % (Auto) (5.3-12.2) % Eos % (Auto) (0.8-7.0) Baso % (Auto) (0.1-1.2) % Neut # (Auto) (1.78-5.38) K/mm3 Lymph # (Auto) (1.32-3.57) K/mm3 [place] # (Auto) (0.30-0.82) K/mm3 Eos # (Auto) (0.04-0.54) K/mm3 Baso # (Auto) (0.01-0.08) K/mm3 Sodium (136-145) mEq/L Potassium (3.5-5.1) mEq/L Chloride (98-107) mEq/L Carbon Dioxide (21-32) mEq/L Anion Gap (5-15) BUN (7-18) mg/dL Creatinine (0.7-1.3) mg/dL Est Cr Clr Drug Dosing mL/min Estimated GFR (MDRD) (>60) mL/min BUN/Creatinine Ratio (14-18) Glucose (80-115) mg/dL Hemoglobin A1c 5.90 (4.50-6.20) % Calcium (8.5-10.1) mg/dL Phosphorus (2.6-4.7) mg/dL Magnesium (1.8-2.4) mg/dl Total Bilirubin (0.2-1.0) mg/dL AST (15-37) U/L ALT (16-63) U/L Alkaline Phosphatase (46-116) U/L C-Reactive Protein (<1.0) mg/dL Total Protein (6.4-8.2) g/dl Albumin (3.4-5.0) g/dl Globulin gm/dL Albumin/Globulin Ratio (1-2) Vitamin B12 493 (193-986) pg/ml Vitamin D 25-Hydroxy 19.4 L (30.0-100.0) ng/ml Folate 17.6 (8.6-58.9) ng/mL Blood Type Gel Antibody Screen 02/20/19 02/20/19 Range/Units 04:49 04:49 WBC 5.95 (4.23-9.07) K/mm3 RBC 4.12 L (4.63-6.08) M/mm3 Hgb 13.4 L (13.7-17.5) gm/dl Hct 40.3 (40.1-51.0) % MCV 97.8 H (79.0-92.2) fl MCH 32.5 H (25.7-32.2) pg MCHC 33.3 (32.2-35.5) g/dl RDW Std Deviation 45.8 H (35.1-43.9) fL Plt Count 195 (163-337) K/mm3 MPV 10.2 (9.4-12.3) fl Neut % (Auto) 63.7 (34.0-67.9) % Lymph % (Auto) 18.0 L (21.8-53.1) % [place] % (Auto) 13.6 H (5.3-12.2) % Eos % (Auto) 3.7 (0.8-7.0) Baso % (Auto) 0.7 (0.1-1.2) % Neut # (Auto) 3.79 (1.78-5.38) K/mm3 Lymph # (Auto) 1.07 L (1.32-3.57) K/mm3 [place] # (Auto) 0.81 (0.30-0.82) K/mm3 Eos # (Auto) 0.22 (0.04-0.54) K/mm3 Baso # (Auto) 0.04 (0.01-0.08) K/mm3 Sodium 141 (136-145) mEq/L Potassium 3.4 L (3.5-5.1) mEq/L Chloride 105 (98-107) mEq/L Carbon Dioxide 27 (21-32) mEq/L Anion Gap 12.4 (5-15) BUN 13 (7-18) mg/dL Creatinine 0.9 (0.7-1.3) mg/dL Est Cr Clr Drug Dosing 76.80 mL/min Estimated GFR (MDRD) > 60 (>60) mL/min BUN/Creatinine Ratio 14.4 (14-18) Glucose 98 (80-115) mg/dL Hemoglobin A1c (4.50-6.20) % Calcium 8.8 (8.5-10.1) mg/dL Phosphorus 3.4 (2.6-4.7) mg/dL Magnesium 2.0 (1.8-2.4) mg/dl Total Bilirubin (0.2-1.0) mg/dL AST (15-37) U/L ALT (16-63) U/L Alkaline Phosphatase (46-116) U/L C-Reactive Protein (<1.0) mg/dL Total Protein (6.4-8.2) g/dl Albumin (3.4-5.0) g/dl Globulin gm/dL Albumin/Globulin Ratio (1-2) Vitamin B12 (193-986) pg/ml Vitamin D 25-Hydroxy (30.0-100.0) ng/ml Folate (8.6-58.9) ng/mL Blood Type Gel Antibody Screen Med Orders - Current: Current Medications Amlodipine Besylate (Norvasc) 5 mg PO DAILY [facility] Last Admin: 02/20/19 09:38 Dose: 5 mg Enoxaparin Sodium (Lovenox) 40 mg SUBCUT DAILY [facility] Last Admin: 02/20/19 09:40 Dose: 40 mg Hydrochlorothiazide (Hydrochlorothiazide) 12.5 mg PO DAILY [facility] Last Admin: 02/20/19 09:39 Dose: 12.5 mg Lactated Ringer's (Ringers, Lactated) 1,000 mls @ 125 mls/hr IV ASDIRECTED [facility] Last Admin: 02/20/19 13:01 Dose: 125 mls/hr Piperacillin Sod/Tazobactam (Sod 4.5 gm/ Sodium Chloride) 100 mls @ 25 mls/hr IV Q8H [facility] Ketorolac Tromethamine (Toradol) 30 mg IV Q6H PRN PRN Reason: Pain (moderate 4-6) Last Admin: 02/20/19 09:57 Dose: 30 mg Losartan Potassium (Cozaar) 25 mg PO DAILY [facility] Last Admin: 02/20/19 09:38 Dose: 25 mg Metoprolol Succinate (Toprol Xl) 25 mg PO QPM [facility] Metoprolol Succinate (Toprol Xl) 100 mg PO QPM [facility] Morphine Sulfate (Morphine) 1 mg IVPUSH Q4H PRN PRN Reason: Pain (severe 7-10) Stop: 02/20/19 18:49 Last Admin: 02/19/19 20:36 Dose: 1 mg Ondansetron HCl (Zofran) 4 mg IV Q6H PRN PRN Reason: Nausea/Vomiting Rosuvastatin Calcium (Crestor) 10 mg PO BEDTIME [facility] Last Admin: 02/19/19 21:40 Dose: 10 mg Sertraline HCl (Zoloft) 50 mg PO DAILY [facility] Last Admin: 02/20/19 09:38 Dose: 50 mg Sodium Chloride (Saline Flush) 10 ml FLUSH ONETIME PRN PRN Reason: IV FLUSH Last Admin: 02/19/19 17:09 Dose: 10 ml Discontinued Medications Diatrizoate Meglum/Diatrizoate Sod (Gastrografin 37%) 120 ml PO ONETIME ONE Stop: 02/19/19 15:59 Last Admin: 02/20/19 04:17 Dose: Not Given Hydromorphone HCl (Dilaudid) 1 mg IVPUSH ONETIME ONE Stop: 02/19/19 13:30 Last Admin: 02/19/19 13:33 Dose: 1 mg Piperacillin Sod/Tazobactam (Sod 4.5 gm/ Sodium Chloride) 100 mls @ 200 mls/hr IV ONETIME ONE Stop: 02/19/19 15:25 Last Admin: 02/19/19 15:10 Dose: 200 mls/hr Piperacillin Sod/Tazobactam (Sod 3.7 gm/ Sodium Chloride) 100 mls @ 25 mls/hr IV Q6H [facility] Last Admin: 02/20/19 13:08 Dose: Not Given Piperacillin Sod/Tazobactam (Sod 4.5 gm/ Sodium Chloride) 100 mls @ 200 mls/hr IV ONETIME ONE Stop: 02/20/19 10:59 Last Admin: 02/20/19 11:45 Dose: 200 mls/hr Potassium Chloride 10 meq/ (Premix) 100 mls @ 100 mls/hr IV Q1H SUSAN Stop: 02/20/19 13:29 Last Admin: 02/20/19 11:45 Dose: 100 mls/hr Iopamidol (Isovue-300 (61%)) 100 ml IVPUSH ONETIME ONE Stop: 02/19/19 15:59 Last Admin: 02/19/19 17:08 Dose: 100 ml - Exam General: Alert, Oriented, Cooperative, No Acute Distress GI/Abdominal Exam: Soft, Distended (moderately), Tender (LLQ) Consult PN Assessment/Plan Procedures: Procedures ABDOMEN SURGERY PROCEDURE (07/18/17) COMPLETE CBC W/AUTO DIFF WBC (07/08/17) METABOLIC PANEL TOTAL CA (07/08/17) MR-STAPH DNA AMP PROBE (07/08/17) ROUTINE VENIPUNCTURE (07/08/17) Problem List Initiated/Reviewed/Updated: No Plan: HD#1 Diverticulitis. Still has LLQ pain, improved slightly. CT a/p confirmed ongoing diverticulitis. - Recommend continuing IV antibiotics today as abd pain is still significant, WBC is normal. - Recommend not advancing diet until abdominal pain improves significantly. - will continue to follow.
[2019-02-20] MEDS: Piperacillin/Tazobactam 4.5 GM in Sodium Chloride 0.9% 100 ML IV SCH (18:28)
[2019-02-20] MEDS: Metoprolol Succinate 50 MG Tab.ER PO SCH (18:41)
[2019-02-20] MEDS: Metoprolol Succinate 25 MG Tab.ER PO SCH (18:41)
[2019-02-20] MEDS: Rosuvastatin 10 MG Tab PO SCH (20:37)
[2019-02-21] MEDS: Piperacillin/Tazobactam 4.5 GM in Sodium Chloride 0.9% 100 ML IV SCH ×3 (01:30→18:34)
[2019-02-21] MEDS: Lactated Ringers 1,000 ML IV SCH (05:29)
[2019-02-21] MEDS: Losartan 25 MG Tab PO SCH (08:50)
[2019-02-21] MEDS: Enoxaparin 40 MG/0.4 ML Syringe SUBCUT SCH (08:50)
[2019-02-21] MEDS: Sertraline 50 MG Tab PO SCH (08:51)
[2019-02-21] MEDS: Hydrochlorothiazide 12.5 MG Cap PO SCH (08:51)
[2019-02-21] MEDS: amLODIPine 5 MG Tab PO SCH (08:51)
[2019-02-21] MEDS: Metoprolol Succinate 25 MG Tab.ER PO SCH (17:48)
[2019-02-21] MEDS: Metoprolol Succinate 50 MG Tab.ER PO SCH (17:49)
[2019-02-21] MEDS: Rosuvastatin 10 MG Tab PO SCH ×2 (19:56→20:05)
[2019-02-21] MEDS: Simethicone 80 MG Tab.Chew PO SCH ×2 (19:57→20:05)
[2019-02-21] MEDS: Allopurinol 300 MG Tab PO SCH ×2 (19:57→20:05)
--- NOTE | 2019-02-21 20:13 | PCM.PN ---
- General Info Date of Service: 02/21/19 Subjective Update: Slept ok Pain is controlled Tolerated clear liquid diet BM yesterday, no more diarrhea Still feeling bloated - Patient Data Vitals - Most Recent: Last Vital Signs Temp 36.7 C 02/21/19 19:52 Pulse 59 L 02/21/19 19:52 Resp 16 02/21/19 19:52 BP 116/75 02/21/19 19:52 Pulse Ox 98 02/21/19 19:52 Weight - Most Recent: 81.057 kg - Exam General: Alert, Oriented, Cooperative, No Acute Distress HEENT: Pupils Equal, Pupils Reactive, Mucous Membr. Moist/[place] Neck: Supple, Trachea Midline, No JVD, No Thyromegaly Lungs: Clear to Auscultation, Normal Respiratory Effort. No: Crackles, Rales, Rhonchi, Rub, Stridor, Wheezing Cardiovascular: Regular Rate, Regular Rhythm. No: Murmurs, Gallops, Rubs GI/Abdominal Exam: Normal Bowel Sounds, Soft, Tender. No: Guarding, Rigid, Rebound Back Exam: Normal Inspection. No: CVA Tenderness (L), CVA Tenderness (R) Extremities: Normal Inspection, No Pedal Edema, Normal Capillary Refill Neurological: Strength Equal Bilateral Psy/Mental Status: Alert, Normal Affect, Normal Mood - Problem List & Annotations (1) Diverticulitis SNOMED Code(s): 736132306 Code(s): K57.92 - DVTRCLI OF INTEST, PART UNSP, W/O PERF OR ABSCESS W/O BLEED Status: Acute Current Visit: Yes (2) Hypertension SNOMED Code(s): 03057469 Code(s): I10 - ESSENTIAL (PRIMARY) HYPERTENSION Status: Acute Current Visit: Yes (3) Dyslipidemia SNOMED Code(s): 672726162 Code(s): E78.5 - HYPERLIPIDEMIA, UNSPECIFIED Status: Acute Current Visit : Yes (4) Obstructive sleep apnea SNOMED Code(s): 61885132 Code(s): G47.33 - OBSTRUCTIVE SLEEP APNEA (ADULT) (PEDIATRIC) Status: Acute Current Visit: Yes (5) Numbness and tingling in both hands SNOMED Code(s): 654227000 Code(s): R20.0 - ANESTHESIA OF SKIN; R20.2 - PARESTHESIA OF SKIN Status: Acute Current Visit: Yes (6) Pacemaker SNOMED Code(s): 473626557 Code(s): Z95.0 - PRESENCE OF CARDIAC PACEMAKER Status: Acute Current Visit: Yes (7) H/O sick sinus syndrome SNOMED Code(s): 497879051017233, 411008895142551 Code(s): Z86.79 - PERSONAL HISTORY OF OTHER DISEASES OF THE CIRCULATORY SYSTEM Status: Acute Current Visit: Yes (8) Gout SNOMED Code(s): 56729557 Code(s): M10.9 - GOUT, UNSPECIFIED Status: Acute Current Visit: Yes (9) Fatty hernia of linea alba SNOMED Code(s): 491744749 Code(s): K43.9 - VENTRAL HERNIA WITHOUT OBSTRUCTION OR GANGRENE Status: Acute Current Visit: Yes - Problem List Review Problem List Initiated/Reviewed/Updated: Yes - My Orders Last 24 Hours: My Active Orders 02/21/19 21:00 Allopurinol [Zyloprim] 300 mg PO BEDTIME Simethicone 80 mg PO BID 02/21/19 Dinner Regular Diet [DIET] - Plan Plan:: Acute abdominal pain 2/2 diverticulitis Symptoms for 5 days Failed outpatient Metronidazole and cipro x 3 days No changes in abdominal pain No fever or leukocytosis Mild diverticulitis on CT abdomen PLAN - Continue Zosyn - Monitor temperature and panculture if febrile - Advance to regular diet - Discontinue IV fluids - Pain control Hypertension Home management with amlodipine 5mg QD, HCTZ 12.5, Losartan 25 and metoprolol 125mg BP trend 114-129/63-92 PLAN - Continue home medications - PRN Hydralazine for BP >200/110 Vitamin D deficiency Low vitamin D PLAN - Will start replacement as an outpatient Dyslipidemia Home atorvastatin 40mg QD No acute issues PLAN - Continue home medication Obstructive sleep apnea Non-compliant with CPAP States his mask and other parts of machine are too worn down PLAN - Recommend PCP to coordinate patient getting replacement parts Numbness and tingling in both hands Previously told he had MS, approximately 20 years ago He has had no progression of symptoms but also no improvement PLAN - Vitamin B12 and folic acid levels - HbA1c H/O sick sinus syndrome s/p pacemaker placement in 1999 No acute issues last interrogation date is unknown but patient denies any cardiac symptoms PLAN - Continue to monitor - No need for telemetry Gout No acute issues PLAN - Hold allopurinol while NPO Incidental left fat containing hernia found on CT scan No signs of strangulation PLAN - Monitor PROPHYLAXIS DVT- Lovenox 40mg QD GI- not indicated CODE STATUS: FULL CODE NEXT OF KIN:Kandace Cherry, , #[phone] DISPOSITION: Patient will remain admitted for pain control and diet advancement, discharge likely in the AM.
[2019-02-22] MEDS: Piperacillin/Tazobactam 4.5 GM in Sodium Chloride 0.9% 100 ML IV SCH ×2 (03:25→10:27)
[2019-02-22] MEDS: amLODIPine 5 MG Tab PO SCH (08:09)
[2019-02-22] MEDS: Simethicone 80 MG Tab.Chew PO SCH (08:09)
[2019-02-22] MEDS: Sertraline 50 MG Tab PO SCH (08:09)
[2019-02-22] MEDS: Losartan 25 MG Tab PO SCH (08:10)
[2019-02-22] MEDS: Hydrochlorothiazide 12.5 MG Cap PO SCH (08:10)
[2019-02-22] MEDS: Enoxaparin 40 MG/0.4 ML Syringe SUBCUT SCH (08:10)
--- NOTE | 2019-02-22 11:28 | PCM.DCSUM1 ---
Discharge Summary - Hospital Course HPI Initial Comments: Patient came into the emergency department complaining of worsening abdominal pain after being started on oral antibiotics for diverticulitis. He was evaluated by surgery who recommended medical management with antibiotics. Patient was admitted on IV Zosyn and completed 2 days of therapy. Symptoms resolved and patient was able to tolerate diet. Discharged to complete 8 more days of Augmentin twice a day, for a total of [address] abdomen was done incidental finding of fatty hernia on the left without signs of strangulation Lab tests MCV 97.8 Vitamin B12 493 (612780) Folate 17.6 (8.650.9) Vitamin D 19.4 Hemoglobin A1c 5.9 Diagnosis: Stroke: No - Discharge Data Discharge Date: 02/22/19 Discharge Disposition: Home, Self-Care 01 Condition: Good - Referral to Home Health Primary Care Physician: Silvia Vasques NP - Discharge Diagnosis/Problem(s) (1) Diverticulitis SNOMED Code(s): 613681899 ICD Code: K57.92 - DVTRCLI OF INTEST, PART UNSP, W/O PERF OR ABSCESS W/O BLEED Status: Acute Current Visit: Yes (2) Hypertension SNOMED Code(s): 48109079 ICD Code: I10 - ESSENTIAL (PRIMARY) HYPERTENSION Status: Acute Current Visit: Yes (3) Dyslipidemia SNOMED Code(s): 948111872 ICD Code: E78.5 - HYPERLIPIDEMIA, UNSPECIFIED Status: Acute Current Visit : Yes (4) Obstructive sleep apnea SNOMED Code(s): 63718559 ICD Code: G47.33 - OBSTRUCTIVE SLEEP APNEA (ADULT) (PEDIATRIC) Status: Acute Current Visit: Yes (5) Numbness and tingling in both hands SNOMED Code(s): 509675987 ICD Code: R20.0 - ANESTHESIA OF SKIN; R20.2 - PARESTHESIA OF SKIN Status: Acute Current Visit: Yes (6) Pacemaker SNOMED Code(s): 560809188 ICD Code: Z95.0 - PRESENCE OF CARDIAC PACEMAKER Status: Acute Current Visit: Yes (7) H/O sick sinus syndrome SNOMED Code(s): 356624106940387, 720468529940430 ICD Code: Z86.79 - PERSONAL HISTORY OF OTHER DISEASES OF THE CIRCULATORY SYSTEM Status: Acute Current Visit: Yes (8) Gout SNOMED Code(s): 92945609 ICD Code: M10.9 - GOUT, UNSPECIFIED Status: Acute Current Visit: Yes (9) Fatty hernia of linea alba SNOMED Code(s): 874776752 ICD Code: K43.9 - VENTRAL HERNIA WITHOUT OBSTRUCTION OR GANGRENE Status: Acute Current Visit: Yes - Patient Instructions Diet: Heart Healthy Diet Activity: As Tolerated - Discharge Plan Prescriptions/Med Rec: Amoxicillin/Potassium Clav [Augmentin Xr 1,000-62.5 Tab] 1 each PO BID 8 Days # 16 tab.er.12h Simethicone 80 mg PO BID 5 Days #10 tab.chew Home Medications: Home Meds Allopurinol [Zyloprim] 300 mg PO DAILY 07/17/17 [History] Aspirin [Ecotrin EC] 81 mg PO DAILY 07/17/17 [History] Metoprolol Succinate 125 mg PO QPM 07/17/17 [History] Pantoprazole Sodium 40 mg PO DAILY 07/17/17 [History] Sertraline HCl 50 mg PO DAILY 07/17/17 [History] amLODIPine Besylate [Amlodipine Besylate] 5 mg PO DAILY 07/17/17 [History] atorvaSTATin Calcium [Atorvastatin Calcium] 40 mg PO BEDTIME 07/17/17 [History] Losartan Potassium 25 mg PO DAILY 02/19/19 [History] Nitroglycerin [Nitrostat] 0.4 mg SL ASDIRECTED PRN 02/19/19 [History] hydroCHLOROthiazide [Hydrochlorothiazide] 12.5 mg PO QAM 02/19/19 [History] Allopurinol [Zyloprim] 300 mg PO BEDTIME tablet 02/22/19 [Rx] Amoxicillin/Potassium Clav [Augmentin Xr 1,000-62.5 Tab] 1 each PO BID 8 Days # 16 tab.er.12h 02/22/19 [Rx] Simethicone 80 mg PO BID 5 Days #10 tab.chew 02/22/19 [Rx] Patient Handouts: Diverticulitis, Sepsis, Adult Forms: ED Department Discharge Referrals: Silvia Vasques FOLLOW UP MANAGER [Primary Care Provider] - Kathy Valdes MD [Physician] - (1-2 weeks) - Discharge Summary/Plan Comment DC Time >30 min.: Yes - General Info Subjective Update: Slept ok Tolerated diet Had a BM Ambulating - Patient Data Vitals - Most Recent: Last Vital Signs Temp 37.1 C 02/22/19 08:09 Pulse 59 L 02/22/19 08:09 Resp 20 02/22/19 08:09 BP 110/92 H 02/22/19 08:10 Pulse Ox 96 02/22/19 08:09 Weight - Most Recent: 81.148 kg - Exam General: Reports: Alert, Oriented, Cooperative, No Acute Distress HEENT: Reports: Pupils Equal, Pupils Reactive, Mucous Membr. Moist/[place] Neck: Reports: Supple, Trachea Midline, No JVD, No Thyromegaly Lungs: Reports: Clear to Auscultation, Normal Respiratory Effort. Denies: Crackles, Rales, Rhonchi, Rub, Stridor, Wheezing Cardiovascular: Reports: Regular Rate, Regular Rhythm. Denies: Murmurs, Gallops , Rubs GI/Abdominal Exam: Normal Bowel Sounds, Soft, Non-Tender. No: Distended, Guarding, Rigid, Rebound Back Exam: Reports: Normal Inspection. Denies: CVA Tenderness (L), CVA Tenderness (R) Extremities: Normal Inspection, Non-Tender, No Pedal Edema Skin: Reports: Warm Neurological: Reports: No New Focal Deficit Psy/Mental Status: Reports: Alert
== END 2019-02-22 12:32 | disposition home or self-care (01) ==
LOC: JD.ED 11:12 → JD.MS 18:27
PROVIDERS: ADMIT Internal Medicine; ATTEND Internal Medicine
DX: K57.32 Diverticulitis of large intestine without perforation or abscess without bleeding (principal); K21.9 Gastro-esophageal reflux disease without esophagitis; I10 Essential (primary) hypertension; E78.5 Hyperlipidemia, unspecified; E78.00 Pure hypercholesterolemia, unspecified; G47.33 Obstructive sleep apnea (adult) (pediatric); G35 Multiple sclerosis; M10.9 Gout, unspecified; K43.9 Ventral hernia without obstruction or gangrene; R94.5 Abnormal results of liver function studies; R20.0 Anesthesia of skin; R20.2 Paresthesia of skin; Z95.0 Presence of cardiac pacemaker; Z86.79 Personal history of other diseases of the circulatory system; Z79.899 Other long term (current) drug therapy; Z79.82 Long term (current) use of aspirin; Z96.89 Presence of other specified functional implants; Z91.19 Patient's noncompliance with other medical treatment and regimen
CPT/HCPCS: 36415; 74177; 74177-26; 80048; 80053; 82306; 82607; 82746; 83036; 83735; 84100; 84207; 85025; 86140; 86850; 86900; 86901; 96361; 96365; 96366; 96375; 96376; 99284; 99285-25; A9270-GY; G0378; J1170; J1650; J1885; J2270; J2405; J2543; J3480; J7030; J7120; Q9963; Q9967

== ENCOUNTER 2023-05-14 07:49 | Day surgery (SDC) | payer BC, MEDICARE ==
[~2023-05-14 07:49] MED LIST changes: -Albuterol 0.083% 2.5 MG/3 ML Neb Soln NEB SCH; -Lidocaine 1%/Sod Bicarbonate in NS 8.4% 1 ML Syringe IDERM PRN; +Sodium Chloride 0.9% 10 ML Syringe FLUSH SCH
[2023-05-14] MEDS ORDERED: Acetaminophen 325 MG Tab PO ONE (08:17)
[2023-05-14] MEDS ORDERED: Gabapentin 300 MG Cap PO ONE (08:17)
[2023-05-14] MEDS: Bupivacaine 0.5% 30 ML SDV ONE ×2 (08:42→10:22)
[2023-05-14] MEDS: Lidocaine 1% 30 ML SDV ONE ×2 (08:43→10:22)
[2023-05-14] MEDS: EPINEPHrine 1 MG/ML SDV ONE ×2 (08:44→10:22)
[2023-05-14] MEDS ORDERED: fentaNYL 250 MCG/5 ML SDV ONE (09:54)
[2023-05-14] MEDS ORDERED: Ondansetron 4 MG/2 ML SDV ONE (09:54)
[2023-05-14] MEDS ORDERED: Midazolam 1 MG/ML 2 ML SDV ONE ×2 (09:54→10:02)
[2023-05-14] MEDS ORDERED: Propofol 200 MG/20 ML SDV ONE ×2 (09:54→11:28)
[2023-05-14] MEDS ORDERED: Lidocaine 1% 6 ML ONE (09:54)
[2023-05-14] MEDS ORDERED: ceFAZolin 2 GM Vial ONE (10:13)
[2023-05-14] MEDS ORDERED: Ketamine 200 MG/20 ML MDV ONE (10:15)
[2023-05-14] MEDS ORDERED: ePHEDrine 50 MG/ML SDV ONE (10:26)
== END 2023-05-14 14:46 | disposition home or self-care (01) ==
LOC: JD.SDS 07:49
PROVIDERS: ATTEND Surgery
DX: K42.9 Umbilical hernia without obstruction or gangrene (principal); K40.91 Unilateral inguinal hernia, without obstruction or gangrene, recurrent; I10 Essential (primary) hypertension; E11.9 Type 2 diabetes mellitus without complications; E78.5 Hyperlipidemia, unspecified; Z98.890 Other specified postprocedural states; Z79.82 Long term (current) use of aspirin; Z79.899 Other long term (current) drug therapy
CPT/HCPCS: A9270-GY; C1781; J0171; J0665; J0690; J2250; J2405; J2704; J3010; J3490; J7120